=== PATIENT | male | born 1960 | race Two or more races ===

== ENCOUNTER 2023-01-11 09:42 | Inpatient (IN) | payer MEDICAID ==
[~2023-01-11] VITALS: Ht 157.5 cm; Wt 79.3 kg
[2023-01-11] VITALS (28 sets, daily range): BP systolic 120–169; BP diastolic 67–91; PULSE 55–76; RESP 12–23; TEMP 97.7–98.1; O2SAT 93–99
[2023-01-11] MEDS ORDERED: HEPARIN SODIUM (PORCINE) 5000 UNITS/ML 1ML VIAL ONE (09:55)
[2023-01-11] MEDS ORDERED: NITROGLYCERIN 0.4 MG SL TAB SL ONE ×2 (09:56→10:00)
[2023-01-11] MEDS ORDERED: METOPROLOL TARTRATE 1MG/1ML-5ML VIAL IV ONE ×2 (09:56→10:00)
[2023-01-11] MEDS ORDERED: ONDANSETRON HCL 4 MG/2 ML VIAL ONE (09:57)
[2023-01-11] MEDS ORDERED: MORPHINE SULFATE 4 MG/ML SYR/VIAL ONE (09:57)
[2023-01-11] MEDS ORDERED: ONDANSETRON HCL 4 MG/2 ML VIAL IV ONE (10:00)
[2023-01-11] MEDS ORDERED: MORPHINE SULFATE INJ 2 MG/ml SYRG IV PRN ×2 (10:00→10:30)
[2023-01-11] MEDS ORDERED: HEPARIN SODIUM (PORCINE) 5000 UNITS/ML 1ML VIAL IV ONE (10:00)
[2023-01-11] MEDS ORDERED: SODIUM CHLORIDE 0.9% 1,000 ML IV ONE (10:15)
[2023-01-11] MEDS ORDERED: ASPirin 81 mg TAB PO ONE (10:15)
[2023-01-11] MEDS ORDERED: LIDOCAINE 2%HCL (LOCAL ANESTH.) INJ 20ML MDV ONE (10:25)
[2023-01-11 10:26] LABS: Basophils # (auto) 0.1 10 ^3/uL (0-0.2); Basophils % (auto) 0.6 % (0.0-2.0); Eosinophils # (auto) 0.1 10 ^3/uL (0-0.8); Eosinophils % (auto) 1.7 % (0.0-7.0); Hemoglobin 15.5 g/dL (13.5-17.5); Lymphocytes # (auto) 1.9 10 ^3/uL (0.4-5.4); Lymphocytes % (auto) 21.9 % (10.0-50.0); Mean Corpuscular Hemoglobin 30.5 pg (28.0-32.0); Mean Corpuscular Hgb Conc. 33.7 g/dL (32.0-36.0); Mean Corpuscular Volume 90.5 fL (80.0-100.0); Monocytes # (auto) 0.7 10 ^3/uL (0-1.3); Neutrophils % (auto) 67.8 % (37.0-80.0); Nucleated Red Blood Cells % 0.1 %; Red Blood Cells 5.09 10^6/uL (4.5-5.90); Red Cell Distribution Width 12.8 % (11.8-14.3); White Blood Cell 8.8 10^3/uL (4.4-10.8)
[2023-01-11] MEDS ORDERED: IODIXANOL 320MG/ML 100ML BTL IV ONE (10:26)
[2023-01-11] MEDS ORDERED: HEPARIN IN NS 1000Units/500mL 1,500 ML ONE (10:26)
[2023-01-11] MEDS ORDERED: NITROGLYCERIN 0.4 MG SL TAB SL PRN (10:30)
[2023-01-11] MEDS ORDERED: ONDANSETRON HCL 4 MG/2 ML VIAL IV PRN (10:30)
[2023-01-11] MEDS ORDERED: DEXTROSE (50%) 50ML SYRG IV PRN (10:30)
[2023-01-11] MEDS ORDERED: ACETAMINOPHEN 325 MG TAB PO PRN (10:30)
[2023-01-11] MEDS ORDERED: SODIUM CHLORIDE 0.9% 1,000 ML IV SCH (10:30)
[2023-01-11 10:42] LABS: Alanine Aminotransferase 24 U/L (7-40); Alkaline Phosphatase 88 U/L (46-116); Anion Gap 8 (5-15); Aspartate Aminotransferase 23 U/L (13-40); BUN/Creatinine Ratio 12.4 (10.0-20.0); Blood Urea Nitrogen 12 mg/dL (9-23); Calcium 9.2 mg/dL (8.5-10.1); Carbon Dioxide 27 mmol/L (20-30); Chloride 105 mmol/L (98-107); Glucose 299 mg/dL (74-106); Potassium 4.3 mmol/L (3.5-5.1); Sodium 140 mmol/L (136-145)
[2023-01-11 10:43] LABS: Albumin 4.3 g/dL (3.2-4.8); Total Protein 7.8 g/dL (5.7-8.2)
[2023-01-11 10:44] LABS: INR 1.13 (0.9-1.15); Partial Thromboplastin Time 30.1 SEC (24.5-34.5); Prothrombin Time 11.8 sec (9.3-11.8)
[2023-01-11] MEDS ORDERED: VERAPAMIL 2.5MG/ML INJ 2ML VIAL IV ONE (10:44)
[2023-01-11] MEDS ORDERED: fentaNYL CITRATE 100 MCG/2 ML VL ONE (10:44)
[2023-01-11] MEDS ORDERED: ANGIOMAX 250 MG VIAL IV ONE (10:44)
[2023-01-11] MEDS ORDERED: SODIUM CHL 0.9% 0 ML ONE (10:45)
[2023-01-11] MEDS ORDERED: ATROPINE SULF 1 MG/10ml SYR ONE (10:45)
[2023-01-11] MEDS ORDERED: MIDAZOLAM HCL 2MG/2ML 2ml VIAL (1mg/ml) ONE (10:45)
[2023-01-11 11:15] LABS: Triglycerides 122 mg/dL (< 150)
[2023-01-11 11:16] LABS: LDL Cholesterol 167 mg/dL (< 100)
[2023-01-11 11:17] LABS: Cholesterol 231 mg/dL (< 200); HDL Cholesterol 43 mg/dL (40-59)
[2023-01-11] MEDS ORDERED: HEPARIN DRIP/D5W 100UNITS/ML 250 ML IV ONE (11:53)
[2023-01-11] MEDS ORDERED: CHOL20002 PO (12:00)
[2023-01-11] MEDS ORDERED: HEPARIN DRIP/D5W 100UNITS/ML 250 ML IV SCH ×2 (12:00→15:28)
[2023-01-11] MEDS: ACCU-CHEK COMFORT CURVE STRIP VI SCH ×3 (13:16→21:52)
[2023-01-11] MEDS: InsuLIN REG 1unit/0.01ml Soln (100units/ml) SC SCH ×3 (13:17→21:58)
[2023-01-11 14:13] LABS: Basophils # (auto) 0 10 ^3/uL (0-0.2); Basophils % (auto) 0.5 % (0.0-2.0); Eosinophils # (auto) 0 10 ^3/uL (0-0.8); Eosinophils % (auto) 0.5 % (0.0-7.0); Hematocrit 45.1 % (41.0-53.0); Hemoglobin 15.2 g/dL (13.5-17.5); Lymphocytes # (auto) 1.1 10 ^3/uL (0.4-5.4); Lymphocytes % (auto) 14.4 % (10.0-50.0); Mean Corpuscular Hemoglobin 30.6 pg (28.0-32.0); Mean Corpuscular Hgb Conc. 33.8 g/dL (32.0-36.0); Mean Corpuscular Volume 90.6 fL (80.0-100.0); Monocytes # (auto) 0.4 10 ^3/uL (0-1.3); Monocytes % (auto) 5.5 % (0.0-12.0); Neutrophils # (auto) 6.3 10 ^3/uL (1.6-8.6); Neutrophils % (auto) 79.1 % (37.0-80.0); Red Blood Cells 4.97 10^6/uL (4.5-5.90); Red Cell Distribution Width 12.5 % (11.8-14.3)
[2023-01-11] MEDS ORDERED: METOPROLOL TARTRATE 25 MG TAB PO ONE (14:15)
[2023-01-11 14:28] LABS: INR 1.14 (0.9-1.15); Partial Thromboplastin Time 45.9 SEC (24.5-34.5); Prothrombin Time 11.9 sec (9.3-11.8)
[2023-01-11] MEDS: METOPROLOL SUCCINATE XL 50 MG TAB PO SCH (15:15)
[2023-01-11] MEDS ORDERED: LISINOPRIL 10 MG TAB PO SCH (15:15)
[2023-01-11 16:24] LABS: COVID19 ANTIGEN SOFIA FIA NEGATIVE (NEGATIVE)
[2023-01-11] MEDS ORDERED: LISI10TA34 PO (18:14)
[2023-01-11] MEDS ORDERED: hydrALAZINE HCL 20 MG/ML VL IV PRN (18:15)
[2023-01-11 18:54] LABS: INR 1.16 (0.9-1.15); Prothrombin Time 12.1 sec (9.3-11.8)
[2023-01-11] MEDS ORDERED: LISINOPRIL 10 MG TAB PO ONE (20:00)
[2023-01-11] MEDS ORDERED: ATORVASTATIN 20 MG TAB PO SCH ×2 (22:00)
[2023-01-12] VITALS (20 sets, daily range): BP systolic 119–165; BP diastolic 65–86; PULSE 54–77; RESP 11–25; TEMP 97.9–98.7; O2SAT 91–99
[2023-01-12 01:54] LABS: INR 1.14 (0.9-1.15); Partial Thromboplastin Time 68.2 SEC (24.5-34.5); Prothrombin Time 11.9 sec (9.3-11.8)
[2023-01-12] MEDS: ACCU-CHEK COMFORT CURVE STRIP VI SCH ×2 (06:33→11:39)
[2023-01-12] MEDS: InsuLIN REG 1unit/0.01ml Soln (100units/ml) SC SCH ×2 (06:36→11:42)
[2023-01-12 07:44] LABS: INR 1.17 (0.9-1.15); Prothrombin Time 12.2 sec (9.3-11.8)
[2023-01-12 08:28] LABS: Chloride 103 mmol/L (98-107); Potassium 4.1 mmol/L (3.5-5.1); Sodium 139 mmol/L (136-145)
[2023-01-12 08:29] LABS: Anion Gap 7 (5-15); Calcium 8.7 mg/dL (8.5-10.1); Carbon Dioxide 29 mmol/L (20-30)
[2023-01-12 08:34] LABS: Blood Urea Nitrogen 16 mg/dL (9-23); Glucose 212 mg/dL (74-106)
[2023-01-12 09:38] LABS: Basophils # (auto) 0 10 ^3/uL (0-0.2); Basophils % (auto) 0.4 % (0.0-2.0); Eosinophils # (auto) 0.1 10 ^3/uL (0-0.8); Eosinophils % (auto) 1.6 % (0.0-7.0); Hematocrit 41.6 % (41.0-53.0); Hemoglobin 14.2 g/dL (13.5-17.5); Lymphocytes # (auto) 1.9 10 ^3/uL (0.4-5.4); Lymphocytes % (auto) 22.5 % (10.0-50.0); Mean Corpuscular Hemoglobin 30.4 pg (28.0-32.0); Mean Corpuscular Volume 89.5 fL (80.0-100.0); Monocytes # (auto) 0.8 10 ^3/uL (0-1.3); Monocytes % (auto) 9.4 % (0.0-12.0); Neutrophils # (auto) 5.6 10 ^3/uL (1.6-8.6); Neutrophils % (auto) 66.1 % (37.0-80.0); Red Blood Cells 4.65 10^6/uL (4.5-5.90); Red Cell Distribution Width 12.7 % (11.8-14.3); White Blood Cell 8.5 10^3/uL (4.4-10.8)
[2023-01-12] MEDS ORDERED: LISINOPRIL 20 MG TAB PO SCH (10:00)
[2023-01-12] MEDS ORDERED: ASPirin 81 mg TAB PO SCH (10:00)
[2023-01-12] MEDS ORDERED: CHOLECALCIFEROL (VITD3) 2,000 UNIT CAP/TAB PO SCH (10:00)
[2023-01-12] MEDS ORDERED: PANTOPRAZOLE 40 MG/10 ML VIAL INJ IV SCH (10:00)
[2023-01-12] MEDS ORDERED: METOPROLOL TARTRATE 25 MG TAB PO SCH (10:00)
[2023-01-12] MEDS: METOPROLOL SUCCINATE XL 50 MG TAB PO SCH (10:10)
== END 2023-01-12 11:20 | disposition short-term general hospital (02) | DRG 190 ==
LOC: ER 09:42 → EDBD 09:42 → TELE 10:23 → ICU WEST 12:40
PROVIDERS: ADMIT Nurse Practitioner Family; ATTEND Internal Medicine
PROC: 4A023N7 Measurement of Cardiac Sampling and Pressure, Left Heart, Percutaneous Approach (ICD-10-PCS; principal; 2023-01-11)
PROC: B211YZZ Fluoroscopy of Multiple Coronary Arteries using Other Contrast (ICD-10-PCS; 2023-01-11)
PROC: B215YZZ Fluoroscopy of Left Heart using Other Contrast (ICD-10-PCS; 2023-01-11)
DX: I21.19 ST elevation (STEMI) myocardial infarction involving other coronary artery of inferior wall (principal); I50.31 Acute diastolic (congestive) heart failure; I11.0 Hypertensive heart disease with heart failure; E66.9 Obesity, unspecified; E78.5 Hyperlipidemia, unspecified; Z79.82 Long term (current) use of aspirin; Z79.899 Other long term (current) drug therapy; Z68.32 Body mass index [BMI] 32.0-32.9, adult; Z20.822 Contact with and (suspected) exposure to COVID-19
CPT/HCPCS: 36415; 71045; 80048; 80053; 80061; 82962; 83036; 83735; 83880; 84443; 84484; 85025; 85379; 85610; 85730; 86850; 86900; 86901; 87081; 87426; 93005; 93306; 93458; 99152; 99291; C9113; G0378; J2250; J2405; Q9967

== ENCOUNTER 2024-02-01 18:06 | Inpatient (IN) | payer MEDICAID ==
[~2024-02-01] VITALS: Ht 172.7 cm; Wt 77.9 kg
[~2024-02-01 18:06] MED LIST: CHOL20002 PO; LISI10TA34 PO
--- NOTE | 2024-02-01 18:28 | ED.PDOC ---
General HPI Comments HPI: Poor Historian. 63-year-old male presents to the emergency department for right flank pain intermittent nonradiating with associated nausea. Denies any other acute symptoms. No alleviating or precipitating factors. Past Medcial History: Hypertension, hyperlipidemia Past Surgical History: CABG REVIEW OF SYSTEMS: CONSTITUTIONAL: Denies acute: fever, diaphoresis, chills, generalized weakness. HEAD: Denies acute: headache, photophobia Eyes: Denies acute: Double vision, vision loss, eye pain, eye discharge. EARS: Denies acute: tinnitus, hearing loss, ear discharge, ear pain, THROAT: Denies acute: sore throat, swelling, difficulty swallowing , pain with swallowing, change in voice. NECK: Denies acute: neck pain, neck swelling, stiff neck. HEART: Denies acute : chest pain, palpitations, LUNGS: Denies acute: SOB, wheezing, cough, hemoptysis ABDOMEN: Denies acute: abdominal pain, Nausea, Vomiting, diarrhea, melena , hematemesis, hematochezia SKIN: Denies acute: rash, redness, lesions, itchiness. EXTREMITIES: Denies acute: calf pain, numbness, tingling, weakness, denies pain in extremity. Denies acute: Low back pain. Neuro: Denies acute: focal neurological deficit, motor or sensory focal neurological deficit, tremors, seizure like activity, confusion, dizziness, change in mental status, loss of bowel or bladder function, cauda equina like symptoms. : Denies acute: dysuria, hematuria, increase in urinary frequency. PSYCH: Denies acute: hallucination, suicidal ideation, homicidal ideation. PHYSICAL EXAM: General: no acute distress, awake and alert. Head: normocephalic, atraumatic. Neck: supple, trachea is midline, no swelling. Throat: Normal phonation. Eyes:, no erythema, no purulent discharge, no proptosis, no icterus. Heart: regular rate, regular rhythm, no significant murmur appreciated. Lungs: no apparent respiratory distress, Able to speak in full sentences. No wheezing, no rhonchi, no crackles. No stridors Clear to auscultation bilaterally. Abdomen: non tender to palpation, non distended, soft, no guarding, no rebound, + bowel sounds. Neuro: Awake, Alert, oriented to name, self, situation, follows commands GCS=15. Speech is normal. Skin: no petechia, no purpura, no cyanosis, non-pale, not jaundice. Lower extremities: --no - Pitting edema no deformity, no focal swelling, no calf TTP. Makes eye contact. moves all four extremities. Face: no apparent facial droop. Right CVA tenderness to percussion Ambulating in the ED independently. Chief Complaint: Flank Pain Time Seen by MD: 18:13 Primary Care Provider: Unknown Reviewed notes: Nurses Notes, Allergies Allergies: Coded Allergies: NO KNOWN ALLERGIES (Unverified , 01/11/23) Home Meds Active Scripts Docusate Sodium (Colace) 100 Mg Cap, 1 CAP PO BID for 7 Days, #30 CAP Prov:TATYANA WILLIAM [employer]IST[employer]ER 02/03/24 Reported Medications Aspirin (Aspirin Low Dose) 81 Mg Tab, 1 TAB PO DAILY 02/02/24 Insulin Glargine (Lantus Solostar) 100 Unit/Ml Inj, SC 02/02/24 Atorvastatin Calcium (ATORVASTATIN CALCIUM) 40 Mg Tab, 1 TAB PO DAILY 02/02/24 Metoprolol Tartrate (Lopressor) 25 Mg Tb, 1 TAB PO BID 02/02/24 Gabapentin (Gabapentin) 300 Mg Cap, 1 CAP PO DAILY 02/02/24 Semaglutide (Rybelsus) 7 Mg Tab, 1 TAB PO DAILY 02/02/24 Metformin Hydrochloride (Metformin Hcl) 1,000 Mg Tab, 1 TAB PO BID 02/02/24 Lisinopril (Lisinopril) 10 Mg Tab, 10 MG PO DAILY for 30 Days, MG 01/11/23 Information Source: Patient Past Medical History PAST MEDICAL HISTORY: DM, High Lipids, HTN Surgical History: Denies all surgeries Family History Family History: Unknown Social History Smoker: Non-Smoker Alcohol: Denies ETOH Use Drugs: Denies Drug Use Lives In: Home Was a procedure done? Was a procedure done?: No Differential Diagnosis Kidney stone (Female): N/A Kidney stone (Male): Other (Flank Pain;DDX include Nephrolethiasis, obstructive uropathy, kidney cancer, renal infarct, intraabdominal neoplasm, lower lobe pneumonia, retroperitoneal hemorrhage, pancreatitis, aneurysm, dissection, musculoskeletal, rib contusion/trauma, hematoma, PYLONEPHRITIS, muscle strain, spinal disease. IN A FEMALE) X-Ray, Labs, Meds, VS Vital Signs Date Time Temp Pulse Resp B/P (MAP) Pulse Ox O2 Delivery O2 Flow Rate FiO2 02/01/24 22:12 156/87 02/01/24 21:36 98.5 86 12 156/87 (110) 96 98.5 02/01/24 21:36 86 12 96 Room Air 02/01/24 18:18 97.9 90 17 166/91 (116) 97 Lab Test 02/01/24 18:44 02/01/24 18:29 02/01/24 18:21 Range/Units Urine Color Yellow Yellow Urine Clarity Clear Clear Urine pH 6.0 5.0-9.0 Urine Specific [place] 1.019 1.001-1.035 Urine Protein Negative Negative Urine Ketones Negative Negative Urine Blood Negative Negative /uL Urine Nitrite Negative Negative Urine Bilirubin Negative Negative Urine Urobilinogen Normal Negative mg/dL Urine Leukocyte Esterase Negative Negative /uL Urine RBC 2 0 - 3 /hpf Urine WBC 1 0 - 3 /hpf Urine Squamous Epithelial Cells Few <5 /hpf Urine Bacteria None seen None Seen /hpf Urine Mucus Few None Seen Urine Glucose Normal Normal mg/dL White Blood Count 5.5 4.4-10.8 10^3/uL Red Blood Count 4.66 4.5-5.90 10^6/uL Hemoglobin 14.7 13.5-17.5 g/dL Hematocrit 43.5 41.0-53.0 % Mean Corpuscular Volume 93.3 80.0-100.0 fL Mean Corpuscular Hemoglobin 31.5 28.0-32.0 pg Mean Corpuscular Hemoglobin Concent 33.8 32.0-36.0 g/dL Red Cell Distribution Width 13.1 11.8-14.3 % Platelet Count 291 140-450 10^3/uL Mean Platelet Volume 9.0 6.9-10.8 fL Neutrophils (%) (Auto) 63.9 37.0-80.0 % Lymphocytes (%) (Auto) 19.4 10.0-50.0 % Monocytes (%) (Auto) 15.0 H 0.0-12.0 % Eosinophils (%) (Auto) 0.9 0.0-7.0 % Basophils (%) (Auto) 0.8 0.0-2.0 % Neutrophils # (Auto) 3.5 1.6-8.6 10 ^3/uL Lymphocytes # (Auto) 1.1 0.4-5.4 10 ^3/uL Monocytes # (Auto) 0.8 0-1.3 10 ^3/uL Eosinophils # (Auto) 0 0-0.8 10 ^3/uL Basophils # (Auto) 0 0-0.2 10 ^3/uL Nucleated Red Blood Cells 0.1 % Sodium Level 137 136-145 mmol/L Potassium Level 4.5 3.5-5.1 mmol/L Chloride Level 102 98-107 mmol/L Carbon Dioxide Level 32 H 20-31 mmol/L Anion Gap 3 L 5-15 Blood Urea Nitrogen 9 9-23 mg/dL Creatinine 0.94 0.700-1.30 mg/dL Glomerular Filtration Rate Calc 92 >90 mL/min BUN/Creatinine Ratio 9.6 L 10.0-20.0 Serum Glucose 170 H 74-106 mg/dL Calcium Level 9.8 8.7-10.4 mg/dL Total Bilirubin 0.5 0.2-1.0 mg/dL Aspartate Amino Transferase (AST) 15 13-40 U/L Alanine Aminotransferase (ALT) 16 7-40 U/L Alkaline Phosphatase 89 46-116 U/L Troponin I High Sensitivity < 3 L </=54 ng/L Total Protein 7.4 5.7-8.2 g/dL Albumin 4.4 3.2-4.8 g/dL Lipase 44 12-53 U/L Lactic Acid Level 1.4 0.4-2.0 mmol/L [place] [id number] Ph: [phone] DIAGNOSTIC IMAGING Diagnostic Imaging Report : [id number] Signed PATIENT: ARNIE ESTRELLA ACCT: [id number] UNIT: [id number] : 1960 LOC: ER ROOM / BED: / AGE / SEX: 63 / M ADM STATUS: REG ER SERVICE 16 ORDERING PHYSICIAN: CHRISTOPHER IVERSON DO PROCEDURE(s): ABPL - CT AB PEL WO CON-NO ORAL OR IV REASON: R FLANK PAIN ORDER NUMBER(s): [id number], ACCESSION NUMBER(s): [id number] Exam: CT CT AB PEL WO CON-NO ORAL OR IV History: R FLANK PAIN Comparison Study: None available at time of dictation. TECHNIQUE: Multidetector CT of the abdomen was performed from lung bases to pubic symphysis. Imaging was performed without IV contrast. Axial, coronal and sagittal multiplanar reformats were obtained from the axial data set by the technologist. Radiation Dose Information: CT Dose: CTDI volume is 15.78 mGy. Dose-length product is 905.59 mGy*cm FINDINGS: Evaluation of solid organs is limited due to lack of intravenous contrast use. Findings: Lung Bases: Patchy bilateral ground-glass infiltrates in the posterior costophrenic angles. There are no prior studies for comparison. Normal heart size. Sternal wire sutures are in place. No pleural or pericardial effusion. Liver: The liver is normal in size. No focal lesions. Gallbladder and Biliary Tree: Unremarkable Spleen: Unremarkable Pancreas: The pancreas is grossly normal in appearance. Adrenal Glands: Unremarkable Kidneys: Mild right hydronephrosis with no calculi visible.. Bladder: Grossly unremarkable for degree of distention. Bowel: The stomach is grossly normal in appearance. Small bowel and colon are normal in caliber and distribution. No CT findings to suggest bowel obstruction however there is stool throughout colon. The appendix is not visualized; however, no secondary findings of acute appendicitis identified. Ascites: Absent Lymphadenopathy: No mesenteric, retroperitoneal or periportal lymphadenopathy. Abdominal Wall and Mesentery: Unremarkable. Vasculature: The visualized abdominal aorta is normal in size and caliber. Evaluation of abdominal and pelvic vessels is limited due to lack of intravenous contrast. Pelvic Organs: Unremarkable Musculoskeletal: No aggressive focal bony lesions, acute fractures or dislocati on. Soft tissues: Unremarkable IMPRESSION: 1. Mild pyelocaliectasis with no calcification visible. 2. No bladder calculi visible. 3. No findings of bowel obstruction. 4. Large stool burden throughout the colon. Radiation optimization: All CT scans at this facility use at least one of these dose optimization techniques: automated exposure control mA and/or kV adjust ment per patient size (includes targeted exams where dose is matched to clinical indication) or iterative reconstruction. ATED BY: CHANELL BERGERON Jr., DO DICTATED DATE/TIME: 02/01/241925 SIGNED BY: CHANELL BERGERON Jr., SIGNED DATE/TIME: 02/01/241925 CC: Time of 1ST Reevaluation: 22:00 Reevaluation 1ST: Improved Patient Education/Counseling: Diagnosis, Treatment Family Education/Counseling: No Family Present Comments Patient presented with the above HPI.------workup was initiated. patient was found with the above mentioned diagnosis. Patient was given: Rocephin, fentanyl Patient ED course and VS have been stabilized. Patient has been reassessed in the ED and remained in a stable condition. Pertinent incidental findings were discussed with the patient and/or family. Patient/family voices understanding and is agreeable with plan. Patient has been observed in the ED adequate length of time to insure improvemen t/stability. patient was admitted to the medicine team for further evaluation and treatment of their presentation. All the reports of any imaging studies that were ordered by myself were reviewed by myself. Departure 1 Departure Time of Disposition: 22:07 Impression: Primary Impression: Flank pain Additional Impression: Pyelonephritis Disposition: ADMITTED INPATIENT Admit to: Tele Condition: Stable e-Prescriptions Docusate Sodium (Colace) 100 Mg Cap 1 CAP PO BID for 7 Days, #30 CAP Prov: TATYANA WILLIAM NP 02/03/24 Discharged With: Self Critical Care Note Critical Care Time?: No CHRISTOPHER IVERSON DO Feb 01, 2024 18:28
[2024-02-01 18:45] LABS: Urine Bacteria None Seen /hpf (None Seen)
[2024-02-01 18:52] LABS: Basophils # (auto) 0 10 ^3/uL (0-0.2); Basophils % (auto) 0.8 % (0.0-2.0); Eosinophils # (auto) 0 10 ^3/uL (0-0.8); Eosinophils % (auto) 0.9 % (0.0-7.0); Hematocrit 43.5 % (41.0-53.0); Hemoglobin 14.7 g/dL (13.5-17.5); Lymphocytes # (auto) 1.1 10 ^3/uL (0.4-5.4); Lymphocytes % (auto) 19.4 % (10.0-50.0); Mean Corpuscular Hemoglobin 31.5 pg (28.0-32.0); Mean Corpuscular Hgb Conc. 33.8 g/dL (32.0-36.0); Mean Corpuscular Volume 93.3 fL (80.0-100.0); Monocytes # (auto) 0.8 10 ^3/uL (0-1.3); Neutrophils # (auto) 3.5 10 ^3/uL (1.6-8.6); Neutrophils % (auto) 63.9 % (37.0-80.0); Nucleated Red Blood Cells % 0.1 %; Platelet Count (auto) 291 10^3/uL (140-450); Red Blood Cells 4.66 10^6/uL (4.5-5.90); Red Cell Distribution Width 13.1 % (11.8-14.3); White Blood Cell 5.5 10^3/uL (4.4-10.8)
[2024-02-01 19:06] LABS: Alanine Aminotransferase 16 U/L (7-40); Albumin 4.4 g/dL (3.2-4.8); Alkaline Phosphatase 89 U/L (46-116); Anion Gap 3 (5-15); Aspartate Aminotransferase 15 U/L (13-40); BUN/Creatinine Ratio 9.6 (10.0-20.0); Bilirubin, Total 0.5 mg/dL (0.2-1.0); Blood Urea Nitrogen 9 mg/dL (9-23); Calcium 9.8 mg/dL (8.7-10.4); Carbon Dioxide 32 mmol/L (20-31); Chloride 102 mmol/L (98-107); Glucose 170 mg/dL (74-106); Lipase 44 U/L (12-53); Potassium 4.5 mmol/L (3.5-5.1); Sodium 137 mmol/L (136-145); Total Protein 7.4 g/dL (5.7-8.2)
--- NOTE | 2024-02-01 19:29 | DVH ---
Exam: CT CT AB PEL WO CON-NO ORAL OR IV History: R FLANK PAIN Comparison Study: None available at time of dictation. TECHNIQUE: Multidetector CT of the abdomen was performed from lung bases to pubic symphysis. Imaging was performed without IV contrast. Axial, coronal and sagittal multiplanar reformats were obtained fr om the axial data set by the technologist. Radiation Dose Information: CT Dose: CTDI volume is 15.78 mGy. Dose-length product is 905.59 mGy*cm FINDINGS: Evaluation of solid organs is limited due to lack of intravenous contrast use. Findings: Lung Bases: Patchy bilateral ground-glass infiltrates in the posterior costophrenic angles. There are no prior studies for comparison. Normal heart size. Sternal wire sutures are in place. No pleural o r pericardial effusion. Liver: The liver is normal in size. No focal lesions. Gallbladder and Biliary Tree: Unremarkable Spleen: Unremarkable Pancreas: The pancreas is grossly normal in appearance. Adrenal Glands: Unremarkable Kidneys: Mild right hydronephrosis with no calculi visible.. Bladder: Grossly unremarkable for degree of distention. Bowel: The stomach is grossly normal in appearance. Small bowel and colon are normal in caliber and d istribution. No CT findings to suggest bowel obstruction however there is stool throughout colon. Th e appendix is not visualized; however, no secondary findings of acute appendicitis identified. Ascites: Absent Lymphadenopathy: No mesenteric, retroperitoneal or periportal lymphadenopathy. Abdominal Wall and Mesentery: Unremarkable. Vasculature: The visualized abdominal aorta is normal in size and caliber. Evaluation of abdominal a nd pelvic vessels is limited due to lack of intravenous contrast. Pelvic Organs: Unremarkable Musculoskeletal: No aggressive focal bony lesions, acute fractures or dislocation. Soft tissues: Unremarkable IMPRESSION: 1. Mild pyelocaliectasis with no calcification visible. 2. No bladder calculi visible. 3. No findings of bowel obstruction. 4. Large stool burden throughout the colon. Radiation optimization: All CT scans at this facility use at least one of these dose optimization reginald hniques: automated exposure control mA and/or kV adjustment per patient size (includes targeted exam s where dose is matched to clinical indication) or iterative reconstruction.
[2024-02-01 20:06] LABS: Urine Blood Negative /uL (Negative); Urine Clarity Clear (Clear); Urine Color Yellow (Yellow); Urine Mucus FEW (None Seen); Urine Protein, UAD Negative (Negative); Urine Specific Gravity 1.019 (1.001-1.035); Urine Urobilinogen Normal (Negative); Urine WBC 1 /hpf (0 - 3)
[2024-02-01] MEDS: cefTRIAXone 1GM/50ML D5W 50 ML IV ONE (21:33)
[2024-02-01] MEDS: fentaNYL CITRATE 100 MCG/2 ML VL IV ONE (22:12)
--- NOTE | 2024-02-01 22:26 | DVHHP2 ---
History of Present Illness Reason for Visit: Flank pain History of Present Illness 63 year male presents for evaluation and flank pain. Patient endorses a one day history right-sided sharp flank pain that is nonradiating associated nausea. Reports occasional chills. Denies dysuria or hematuria. No other acute complaints reported. Past Medical History Hypertension, [place] and dyslipidemia Past Surgical History CABG Family History Noncontributory Smoke: No ALCOHOL: none Drugs: None Review of Systems Review of Systems Review of systems are currently negative otherwise addressed HPI. Allergies: Coded Allergies: NO KNOWN ALLERGIES (Unverified , 01/11/23) Exam Vital Signs Vital Signs Date Time Temp Pulse Resp B/P (MAP) Pulse Ox O2 Delivery O2 Flow Rate FiO2 02/01/24 22:12 156/87 02/01/24 21:36 98.5 86 12 96 98.5 02/01/24 21:36 Room Air Exam Gen: 63-year-old male in mild distress Skin: Warm, dry, normal color and texture, no rash. HEENT: Normocephalic atraumatic, mucous membranes moist and pink. Neck: Cervical and supraclavicular nodes normal without enlargement, trachea is midline, thyroid gland is normal without masses. Pulmonary: Clear to auscultation and percussion bilaterally. Cardiac: Regular rate and rhythm. No murmur Abdomen: Soft, nontender, nondistended, bowel sounds present all 4 quadrants, no guarding, no rigidity, no organomegaly. Extremities: No cyanosis, clubbing, no edema Neuro: Cranial nerves II through XII grossly intact, normal affect and speech, no focal motor deficits. Labs/Xrays ORDERING PHYSICIAN: CHRISTOPHER IVERSON DO PROCEDURE(s): ABPL - CT AB PEL WO CON-NO ORAL OR IV REASON: R FLANK PAIN ORDER NUMBER(s): [id number], ACCESSION NUMBER(s): [id number] Exam: CT CT AB PEL WO CON-NO ORAL OR IV History: R FLANK PAIN Comparison Study: None available at time of dictation. TECHNIQUE: Multidetector CT of the abdomen was performed from lung bases to pubic symphysis. Imaging was performed without IV contrast. Axial, coronal and sagittal multiplanar reformats were obtained from the axial data set by the technologist. Radiation Dose Information: CT Dose: CTDI volume is 15.78 mGy. Dose-length product is 905.59 mGy*cm FINDINGS: Evaluation of solid organs is limited due to lack of intravenous contrast use. Findings: Lung Bases: Patchy bilateral ground-glass infiltrates in the posterior costophrenic angles. There are no prior studies for comparison. Normal heart size. Sternal wire sutures are in place. No pleural or pericardial effusion. Liver: The liver is normal in size. No focal lesions. Gallbladder and Biliary Tree: Unremarkable Spleen: Unremarkable Pancreas: The pancreas is grossly normal in appearance. Adrenal Glands: Unremarkable Kidneys: Mild right hydronephrosis with no calculi visible.. Bladder: Grossly unremarkable for degree of distention. Bowel: The stomach is grossly normal in appearance. Small bowel and colon are normal in caliber and distribution. No CT findings to suggest bowel obstruction however there is stool throughout colon. The appendix is not visualized; however, no secondary findings of acute appendicitis identified. Ascites: Absent Lymphadenopathy: No mesenteric, retroperitoneal or periportal lymphadenopathy. Abdominal Wall and Mesentery: Unremarkable. Vasculature: The visualized abdominal aorta is normal in size and caliber. Evaluation of abdominal and pelvic vessels is limited due to lack of intravenous contrast. Pelvic Organs: Unremarkable Musculoskeletal: No aggressive focal bony lesions, acute fractures or dislocation. Soft tissues: Unremarkable IMPRESSION: 1. Mild pyelocaliectasis with no calcification visible. 2. No bladder calculi visible. 3. No findings of bowel obstruction. 4. Large stool burden throughout the colon. Radiation optimization: All CT scans at this facility use at least one of these dose optimization techniques: automated exposure control mA and/or kV adjustment per patient size (includes targeted exams where dose is matched to clinical indication) or iterative reconstruction. Labs Test 02/01/24 18:44 02/01/24 18:29 02/01/24 18:21 Range/Units Urine Color Yellow Yellow Urine Clarity Clear Clear Urine pH 6.0 5.0-9.0 Urine Specific [place] 1.019 1.001-1.035 Urine Protein Negative Negative Urine Ketones Negative Negative Urine Blood Negative Negative /uL Urine Nitrite Negative Negative Urine Bilirubin Negative Negative Urine Urobilinogen Normal Negative mg/dL Urine Leukocyte Esterase Negative Negative /uL Urine RBC 2 0 - 3 /hpf Urine WBC 1 0 - 3 /hpf Urine Squamous Epithelial Cells Few <5 /hpf Urine Bacteria None seen None Seen /hpf Urine Mucus Few None Seen Urine Glucose Normal Normal mg/dL White Blood Count 5.5 4.4-10.8 10^3/uL Red Blood Count 4.66 4.5-5.90 10^6/uL Hemoglobin 14.7 13.5-17.5 g/dL Hematocrit 43.5 41.0-53.0 % Mean Corpuscular Volume 93.3 80.0-100.0 fL Mean Corpuscular Hemoglobin 31.5 28.0-32.0 pg Mean Corpuscular Hemoglobin Concent 33.8 32.0-36.0 g/dL Red Cell Distribution Width 13.1 11.8-14.3 % Platelet Count 291 140-450 10^3/uL Mean Platelet Volume 9.0 6.9-10.8 fL Neutrophils (%) (Auto) 63.9 37.0-80.0 % Lymphocytes (%) (Auto) 19.4 10.0-50.0 % Monocytes (%) (Auto) 15.0 H 0.0-12.0 % Eosinophils (%) (Auto) 0.9 0.0-7.0 % Basophils (%) (Auto) 0.8 0.0-2.0 % Neutrophils # (Auto) 3.5 1.6-8.6 10 ^3/uL Lymphocytes # (Auto) 1.1 0.4-5.4 10 ^3/uL Monocytes # (Auto) 0.8 0-1.3 10 ^3/uL Eosinophils # (Auto) 0 0-0.8 10 ^3/uL Basophils # (Auto) 0 0-0.2 10 ^3/uL Nucleated Red Blood Cells 0.1 % Sodium Level 137 136-145 mmol/L Potassium Level 4.5 3.5-5.1 mmol/L Chloride Level 102 98-107 mmol/L Carbon Dioxide Level 32 H 20-31 mmol/L Anion Gap 3 L 5-15 Blood Urea Nitrogen 9 9-23 mg/dL Creatinine 0.94 0.700-1.30 mg/dL Glomerular Filtration Rate Calc 92 >90 mL/min BUN/Creatinine Ratio 9.6 L 10.0-20.0 Serum Glucose 170 H 74-106 mg/dL Calcium Level 9.8 8.7-10.4 mg/dL Total Bilirubin 0.5 0.2-1.0 mg/dL Aspartate Amino Transferase (AST) 15 13-40 U/L Alanine Aminotransferase (ALT) 16 7-40 U/L Alkaline Phosphatase 89 46-116 U/L Troponin I High Sensitivity < 3 L </=54 ng/L Total Protein 7.4 5.7-8.2 g/dL Albumin 4.4 3.2-4.8 g/dL Lipase 44 12-53 U/L Lactic Acid Level 1.4 0.4-2.0 mmol/L Assessment/Plan Assessment/Plan Assessment acute pyelonephritis Diabetes mellitus Hypertension Plan Admit the patient to [facility] to the hospitalist Lionel Pain management Resume medications Continue treatment per orders. Plan discussed with: Patient Date of Service: Feb 01, 2024 Billing Provider: NICOLE MEDINA Common Visit Codes: [id number] INP/OBS CARE (MOD) NICOLE MEDINA Feb 01, 2024 22:26
[2024-02-01] MEDS ORDERED: ACETAMINOPHEN 325 MG TAB PO PRN (22:30)
[2024-02-01] MEDS ORDERED: TEMAZEPAM 15 MG CAP PO PRN (22:30)
[2024-02-01] MEDS ORDERED: DEXTROSE (50%) 50ML SYRG IV PRN (22:30)
[2024-02-01] MEDS: ONDANSETRON HCL 4 MG/2 ML VIAL ONE (22:43)
[2024-02-01] MEDS: ONDANSETRON HCL 4 MG/2 ML VIAL IV PRN (22:57)
[2024-02-01 23:18] VITALS: PULSE 79; RESP 16; O2SAT 93
[2024-02-02] VITALS (7 sets, daily range): BP systolic 112–161; BP diastolic 61–87; PULSE 61–88; RESP 16–18; TEMP 97.8–98.1; O2SAT 94–99
[2024-02-02 03:04] LABS: Basophils # (auto) 0 10 ^3/uL (0-0.2); Basophils % (auto) 0.6 % (0.0-2.0); Eosinophils # (auto) 0 10 ^3/uL (0-0.8); Eosinophils % (auto) 0.5 % (0.0-7.0); Hematocrit 41.2 % (41.0-53.0); Lymphocytes % (auto) 13.8 % (10.0-50.0); Mean Corpuscular Hemoglobin 31.5 pg (28.0-32.0); Mean Corpuscular Volume 92.7 fL (80.0-100.0); Monocytes % (auto) 13.4 % (0.0-12.0); Neutrophils # (auto) 5.3 10 ^3/uL (1.6-8.6); Neutrophils % (auto) 71.7 % (37.0-80.0); Platelet Count (auto) 257 10^3/uL (140-450); Red Blood Cells 4.44 10^6/uL (4.5-5.90); Red Cell Distribution Width 13.1 % (11.8-14.3); White Blood Cell 7.3 10^3/uL (4.4-10.8)
[2024-02-02 03:10] LABS: Chloride 104 mmol/L (98-107); Sodium 137 mmol/L (136-145)
[2024-02-02 03:11] LABS: Anion Gap 3 (5-15); Carbon Dioxide 30 mmol/L (20-31)
[2024-02-02 03:12] LABS: Calcium 9.3 mg/dL (8.7-10.4)
[2024-02-02 03:16] LABS: BUN/Creatinine Ratio 9.8 (10.0-20.0); Blood Urea Nitrogen 8 mg/dL (9-23); Glucose 171 mg/dL (74-106)
[2024-02-02] MEDS: InsuLIN REG 1unit/0.01ml Soln (100units/ml) SC SCH (07:00)
[2024-02-02] MEDS: ACCU-CHEK COMFORT CURVE STRIP VI SCH (07:11)
[2024-02-02] MEDS: ASPirin 81 mg TAB PO SCH (09:01)
[2024-02-02] MEDS: GABAPENTIN 300 MG CAP PO SCH (09:01)
[2024-02-02] MEDS: LISINOPRIL 5 MG TAB PO SCH (09:02)
[2024-02-02] MEDS: METOPROLOL TARTRATE 25 MG TAB PO SCH (09:09)
[2024-02-02] MEDS: cefTRIAXone 1GM/50ML D5W 50 ML IV SCH (09:12)
[2024-02-02] MEDS ORDERED: METF-372 PO (10:31)
[2024-02-02] MEDS ORDERED: SEMA7TAB2 PO (10:32)
[2024-02-02] MEDS ORDERED: GABA-1250 PO (10:33)
[2024-02-02] MEDS ORDERED: MET25T PO (10:33)
[2024-02-02] MEDS ORDERED: ASPI-325 PO (10:35)
[2024-02-02] MEDS ORDERED: ATOR40TA52 PO (10:35)
[2024-02-02] MEDS ORDERED: INSUINJ37 SC (10:35)
--- NOTE | 2024-02-02 15:27 | DVHPN2 ---
Subjective Patient continues to report having right flank pain. Patient also reports having constipation. Reviewed: Care Plan, H&P, Labs, Medications Changes from previous H/P or p: No Changes General: Per HPI Objective Vitals Vital Signs Date Time Temp Pulse Resp B/P (MAP) Pulse Ox O2 Delivery O2 Flow Rate FiO2 02/02/24 12:37 98.0 88 18 135/73 (93) 94 98.0 02/02/24 08:00 Room Air* 0 21 Intake/Output Intake and Output 02/02/24 07:00 Intake Total 50 ml Balance 50 ml Intake IV Total 50 ml General Appearance: Alert, Oriented X3, Cooperative, No acute distress HEENT: Atraumatic, PERRLA Lungs: Clear to auscultation, Normal air movement Cardiovascular: Normal S1, Normal S2 Abdomen: Normal bowel sounds, Soft, No tenderness Rectal: Normal inspection Genitourinary: No Apparent Abnormalities Musculoskeletal: Normal sensory function, Normal motor function Neuro: Normal gait, Normal speech Psych/Mental Status: Mental status NL, Mood NL Medications Current Medications Medications Dose Ordered Sig/Khushboo Route Start Time Stop Time Status Last Admin Dose Admin Ceftriaxone Sodium 50 ml @ 100 mls/hr DAILY@09 IV 02/02/24 09:00 02/02/24 09:12 100 MLS/HR Gabapentin 300 mg DAILY PO 02/02/24 10:00 02/02/24 09:01 300 MG Metoprolol Tartrate 25 mg BID PO 02/02/24 10:00 02/02/24 09:09 25 MG Atorvastatin Calcium 40 mg HS PO 02/02/24 22:00 Lisinopril 10 mg DAILY PO 02/02/24 10:00 02/02/24 09:02 10 MG Aspirin 81 mg DAILY PO 02/02/24 10:00 02/02/24 09:01 81 MG Acetaminophen/ Hydrocodone Bitart 1 tab Q4HP PRN PO 02/01/24 22:30 Temazepam 15 mg QHSP PRN PO 02/01/24 22:30 Ondansetron HCl 4 mg Q4HP PRN IV 02/01/24 22:30 02/01/24 22:57 4 MG Acetaminophen 650 mg Q6HP PRN PO 02/01/24 22:30 Diagnostic Test (Pha) 1 strip ACHS 02/02/24 07:00 02/02/24 11:13 1 STRIP Insulin Human Regular ACHS SC 02/02/24 07:00 02/02/24 12:14 3 UNITS Dextrose 50 ml UD PRN IV 02/01/24 22:30 Laboratory Results Laboratory Tests 02/02/24 02:12 Chemistry Test 02/01/24 18:29 02/02/24 02:12 Albumin 4.4 g/dL (3.2-4.8) Calcium Level 9.8 mg/dL (8.7-10.4) 9.3 mg/dL (8.7-10.4) Total Protein 7.4 g/dL (5.7-8.2) Lipid panel Test 02/01/24 18: Lipase 44 U/L (12-53) LFT Test 02/01/24 18:29 Alanine Aminotransferase (ALT) 16 U/L (7-40) Alkaline Phosphatase 89 U/L (46-116) Aspartate Amino Transferase (AST) 15 U/L (13-40) Total Bilirubin 0.5 mg/dL (0.2-1.0) Urinalysis Test 02/01/24 18:44 Urine Color Yellow (Yellow) Urine Clarity Clear (Clear) Urine pH 6.0 (5.0-9.0) Urine Specific [place] 1.019 (1.001-1.035) Urine Protein Negative (Negative) Urine Ketones Negative (Negative) Urine Blood Negative /uL (Negative) Urine Nitrite Negative (Negative) Urine Bilirubin Negative (Negative) Urine Urobilinogen Normal mg/dL (Negative) Urine Leukocyte Esterase Negative /uL (Negative) Urine RBC 2 /hpf (0 - 3) Urine WBC 1 /hpf (0 - 3) Urine Squamous Epithelial Cells Few /hpf (<5) Urine Bacteria None seen /hpf (None Seen) Urine Mucus Few (None Seen) Urine Glucose Normal mg/dL (Normal) Labs and/or images reviewed: Labs reviewed by me, Image(s) reviewed by me Assessment/Plan Assessment/Plan Impression: -abdominal pain -constipation -mild right hydronephrosis -diabetes mellitus -primary hypertension Plan: -assessment reveals no CVA tenderness. No tenderness noted to light and deep palpation. -bowel regimen: Stool softeners, laxatives -continue regular insulin sliding scale -continue home antihypertensives -trial of Flomax -reassess for Discharge in a.m. Total time spent with patient discussing and formulating plan of care: 35 minutes. This medical document was created using an electronic medical record system with [employer] computerized dictation system. Although this document has been carefully reviewed, there may still be some phonetic and typographical errors. These areas are purely typographical due to imperfections of the software programs, and do not reflect any compromise in the patient's medical care. Plan discussed with: Patient, Other (RN) Date of Service: Feb 02, 2024 Billing Provider: TATYANA WILLIAM NP Common Visit Codes: [id number] INP/OBS CARE(HIGH) TATYANA WILLIAM NP Feb 02, 2024 15:27
[2024-02-02] MEDS ORDERED: SENNA 8.6 MG TAB PO PRN (15:30)
[2024-02-02] MEDS: POLYETHYLENE GLYCOL 17 GM PWDR PO ONE (18:15)
[2024-02-02] MEDS: TAMSULOSIN HYDROCHLORIDE 0.4 MG CAP PO SCH (18:16)
[2024-02-02] MEDS: DOCUSATE SOD 100 MG CAP PO ONE (18:16)
[2024-02-02] MEDS: HYDROcodone-ACET 5/325MG TAB PO PRN (18:51)
[2024-02-02] MEDS: ATORVASTATIN 20 MG TAB PO SCH (21:38)
[2024-02-03 01:00] VITALS: BP 129/70; PULSE 70; RESP 16; TEMP 97.8; O2SAT 95
[2024-02-03 05:00] VITALS: BP 133/78; PULSE 70; RESP 16; TEMP 97.9; O2SAT 94
[2024-02-03 07:50] VITALS: PULSE 68; RESP 17; O2SAT 95
[2024-02-03 09:00] VITALS: BP 139/85; PULSE 68; RESP 17; TEMP 97.8; O2SAT 95
[2024-02-03] MEDS: METOCLOPRAMIDE HCL 5MG/ml INJ 2ml VIAL IV ONE (12:25)
[2024-02-03] MEDS: BISACODYL 10 MG RECT SUPP PR ONE (12:26)
[2024-02-03] MEDS: LACTULOSE 20Gm/30ML SOLN PO ONE (12:26)
[2024-02-03 13:00] VITALS: BP 147/81; PULSE 68; RESP 17; TEMP 98.3; O2SAT 96
[2024-02-03] MEDS ORDERED: DOCU-94 PO (15:09)
--- NOTE | 2024-02-03 15:09 | DVHDS2 ---
Discharge Summary Date of Admission Feb 01, 2024 at 22:22 Date of Discharge: Feb 03, 2024 Admitting Diagnosis Abdominal pain secondary to pyelonephritis Labs/Diagnostic Data: Laboratory Results Test 02/03/24 12:05 02/02/24 02:12 02/01/24 18:44 02/01/24 18:29 POC Glucose 170 mg/dl (70-106) White Blood Count 7.3 10^3/uL (4.4-10.8) Red Blood Count 4.44 10^6/uL (4.5-5.90) Hemoglobin 14.0 g/dL (13.5-17.5) Hematocrit 41.2 % (41.0-53.0) Mean Corpuscular Volume 92.7 fL (80.0-100.0) Mean Corpuscular Hemoglobin 31.5 pg (28.0-32.0) Mean Corpuscular Hemoglobin Concent 34.0 g/dL (32.0-36.0) Red Cell Distribution Width 13.1 % (11.8-14.3) Platelet Count 257 10^3/uL (140-450) Mean Platelet Volume 9.7 fL (6.9-10.8) Neutrophils (%) (Auto) 71.7 % (37.0-80.0) Lymphocytes (%) (Auto) 13.8 % (10.0-50.0) Monocytes (%) (Auto) 13.4 % (0.0-12.0) Eosinophils (%) (Auto) 0.5 % (0.0-7.0) Basophils (%) (Auto) 0.6 % (0.0-2.0) Neutrophils # (Auto) 5.3 10 ^3/uL (1.6-8.6) Lymphocytes # (Auto) 1.0 10 ^3/uL (0.4-5.4) Monocytes # (Auto) 1.0 10 ^3/uL (0-1.3) Eosinophils # (Auto) 0 10 ^3/uL (0-0.8) Basophils # (Auto) 0 10 ^3/uL (0-0.2) Nucleated Red Blood Cells 0.0 % Sodium Level 137 mmol/L (136-145) Potassium Level 4.0 mmol/L (3.5-5.1) Chloride Level 104 mmol/L (98-107) Carbon Dioxide Level 30 mmol/L (20-31) Anion Gap 3 (5-15) Blood Urea Nitrogen 8 mg/dL (9-23) Creatinine 0.82 mg/dL (0.700-1.30) Glomerular Filtration Rate Calc 99 mL/min (>90) BUN/Creatinine Ratio 9.8 (10.0-20.0) Serum Glucose 171 mg/dL (74-106) Hemoglobin A1c 8.8 % A1C (<5.7) Calcium Level 9.3 mg/dL (8.7-10.4) Urine Color Yellow (Yellow) Urine Clarity Clear (Clear) Urine pH 6.0 (5.0-9.0) Urine Specific [place] 1.019 (1.001-1.035) Urine Protein Negative (Negative) Urine Ketones Negative (Negative) Urine Blood Negative /uL (Negative) Urine Nitrite Negative (Negative) Urine Bilirubin Negative (Negative) Urine Urobilinogen Normal mg/dL (Negative) Urine Leukocyte Esterase Negative /uL (Negative) Urine RBC 2 /hpf (0 - 3) Urine WBC 1 /hpf (0 - 3) Urine Squamous Epithelial Cells Few /hpf (<5) Urine Bacteria None seen /hpf (None Seen) Urine Mucus Few (None Seen) Urine Glucose Normal mg/dL (Normal) Total Bilirubin 0.5 mg/dL (0.2-1.0) Aspartate Amino Transferase (AST) 15 U/L (13-40) Alanine Aminotransferase (ALT) 16 U/L (7-40) Alkaline Phosphatase 89 U/L (46-116) Troponin I High Sensitivity < 3 ng/L (</=54) Total Protein 7.4 g/dL (5.7-8.2) Albumin 4.4 g/dL (3.2-4.8) Lipase 44 U/L (12-53) Test 02/01/24 18:21 Lactic Acid Level 1.4 mmol/L (0.4-2.0) Other Laboratory Tests 02/02/24 02:12 Brief Hx & Hospital Course: History of Present Illness 63 year male presents for evaluation and flank pain. Patient endorses a one day history right-sided sharp flank pain that is nonradiating associated nausea. Reports occasional chills. Denies dysuria or hematuria. No other acute complaints reported. Course of hospitalization: Assessment performed by myself reveals with the patient has no CVA tenderness. Patient has no leukocytosis in his UA as well as no bacteria to be found. CBC is essentially unremarkable. The patient actually reports having right lower back pain, not flank pain. CT scan was reviewed of his abdomen and pelvis which reveals large stool burden throughout his colon. Patient was given aggressive bowel regimen with patient relieving his bowels and having resolution of his back pain. The patient will be discharged home and be continued on his previous home medications. The patient will also continue with Colace 100 mg p.o. b.i.d. every day, to stop with signs of diarrhea. Physical exam General: Alert and Oriented x3. No acute distress. Well-nourished. Eyes: EOMI. Anicteric. HENT: Moist mucous membranes. Lungs: Clear to auscultation bilaterally. No accessory muscle use. Cardiovascular: Regular rate and rhythm. No murmur. No JVD. Abdomen: Soft, non-tender and non-distended. No palpable masses. Extremities: No edema. Non-tender. Skin: No rashes or lesions. Warm. Neurologic: No focal neurological deficits. CN II-XII grossly intact, but not individually tested. Psychiatric: Cooperative. Appropriate mood and affect. Total time spent with patient discussing and formulating plan of care: 35 minutes. This medical document was created using an electronic medical record system with [employer] dictation system. Although this document has been carefully reviewed, there may still be some phonetic and typographical errors. These areas are purely typographical due to imperfections of the software programs, and do not reflect any compromise in the patient's medical care. Condition at Discharge: Fair Final Diagnosis/Problems List Abdominal pain secondary to severe constipation Secondary Diagnosis: -constipation -mild right hydronephrosis -diabetes mellitus -primary hypertension -history of coronary artery disease with CABG Discharge Disposition: Home Discharge Instruct/Medications Diet: Cardiac 2g Na,low cholest Activity: No Restrictions, As Tolerated Follow Up/Referral: Follow up with PCP in 1-2 weeks Medications: Colace 100 mg p.o. b.i.d.. Stop with the signs of diarrhea. 36 Discharge Statement: "Patient was advised to return to the ER or call 911 if any headaches, dizziness, shortness of breath, chest pain, abdominal pain, bleeding, fevers, or worsening of medical condition. Patient was counseled about treatment plan, medications, possible side effects, patientverbalized understanding. All questions were answered to the best of my ability. This discharge took greater then 30 minutes in planning, reviewing documentation, counseling the patient, and discussing with other team members." ASSESSMENT ASSESSMENT Assessment Abdominal pain secondary to severe constipation Date of Service: Feb 03, 2024 Billing Provider: TATYANA WILLIAM NP Common Visit Codes: 10406-XAJ/OBS DISCH DAY >30min TATYANA WILLIAM NP Feb 03, 2024 15:09
[2024-02-03 16:15] VITALS: BP 136/79; PULSE 80; RESP 20; TEMP 98; O2SAT 96
[2024-02-04 09:49] LABS: Hepatitis B Surface Antigen Negative (Negative)
[2024-02-04 10:10] LABS: Hepatitis C Antibody Negative (Negative)
== END 2024-02-03 17:13 | disposition home or self-care (01) | DRG 247 ==
LOC: ER 18:06 → OVERFLOW 22:22 → CENTRAL 02-02 15:55
PROVIDERS: ADMIT Nurse Practitioner; ATTEND Nurse Practitioner Acute Care
DX: K56.41 Fecal impaction (principal); N13.30 Unspecified hydronephrosis; E11.9 Type 2 diabetes mellitus without complications; I10 Essential (primary) hypertension; E78.5 Hyperlipidemia, unspecified; I25.10 Atherosclerotic heart disease of native coronary artery without angina pectoris; Z95.1 Presence of aortocoronary bypass graft; I25.2 Old myocardial infarction
CPT/HCPCS: 36415; 74176; 80048; 80053; 81001; 82962; 83036; 83605; 83690; 84484; 85025; 86803; 87340; G0378; J1815; J2405

== ENCOUNTER 2024-09-23 17:48 | Emergency (ER) | payer MEDICAID ==
[~2024-09-23] VITALS: Ht 167.6 cm; Wt 76.2 kg
[~2024-09-23 17:48] MED LIST changes: +ASPI-325 PO; +ATOR40TA52 PO; -CHOL20002 PO; +DOCU-94 PO; +GABA-1250 PO; +INSUINJ37 SC; +MET25T PO; +METF-372 PO; +SEMA7TAB2 PO
--- NOTE | 2024-09-23 18:24 | ED.PDOC ---
GI ASSESSMENT HPI Comments 64-year-old male presents to the ED chief complaint flu-like symptoms x4 days. Patient complaining of fever, cough, headache, and sore throat states has been taking [id number] medications with some relief. Notes no recent travel reports no known ill contacts. Denies chest pain, difficulty breathing, nausea, vomiting, abdominal pain, or recent travel Chief Complaint: Flu like Time Seen by MD: 18:22 Primary Care Provider: NONE Reviewed Notes: Nurses Notes, Medications, Allergies Allergies: Coded Allergies: NO KNOWN ALLERGIES (Unverified , 01/11/23) Home Meds Active Scripts Docusate Sodium (Colace) 100 Mg Cap, 1 CAP PO BID for 7 Days, #30 CAP Prov:TATYANA WILLIAM SHOCHET 02/03/24 Reported Medications Aspirin (Aspirin Low Dose) 81 Mg Tab, 1 TAB PO DAILY 02/02/24 Insulin Glargine (Lantus Solostar) 100 Unit/Ml Inj, SC 02/02/24 Atorvastatin Calcium (ATORVASTATIN CALCIUM) 40 Mg Tab, 1 TAB PO DAILY 02/02/24 Metoprolol Tartrate (Lopressor) 25 Mg Tb, 1 TAB PO BID 02/02/24 Gabapentin (Gabapentin) 300 Mg Cap, 1 CAP PO DAILY 02/02/24 Semaglutide (Rybelsus) 7 Mg Tab, 1 TAB PO DAILY 02/02/24 Metformin Hydrochloride (Metformin Hcl) 1,000 Mg Tab, 1 TAB PO BID 02/02/24 Lisinopril (Lisinopril) 10 Mg Tab, 10 MG PO DAILY for 30 Days, MG 01/11/23 Mode of Arrival: Ambulatory Past Medical History PAST MEDICAL HISTORY: DM, High Lipids, HTN Surgical History: Denies all surgeries Family History Family History: Unknown Social History Smoker: Non-Smoker Alcohol: Denies ETOH Use Drugs: Denies Drug Use Lives In: Home Constitutional: reports: fever; denies: chills, diaphoresis, fatigue, malaise, sweats, weakness, others EENTM: reports: throat pain; denies: blurred vision, double vision, ear bleeding, ear discharge, ear drainage, ear pain, ear ringing, eye pain, eye redness, hearing loss, mouth pain, mouth swelling, nasal discharge, nose bleeding, nose congestion, nose pain, photophobia, tearing, throat swelling, voice changes, others Respiratory: reports: cough; denies: hemoptysis, orthopnea, SOB at rest, shortness of breath, SOB with excertion, stridor, wheezing, others Cardiovascular: denies: chest pain, dizzy spells, diaphoresis, Dyspnea on exertion, edema, irregular heart beat, left arm pain, lightheadedness, palpitations, PND, syncope, others Gastrointestinal: denies: abdomen distended, abdominal pain, blood streaked bowels, constipated, diarrhea, dysphagia, difficulty swallowing, hematemesis, melena, nausea, poor appetite, poor fluid intake, rectal bleeding, rectal pain, vomiting, others Genitourinary: denies: burning, dysuria, flank pain, frequency, hematuria, incontinence, penile discharge, penile sore, pain, testicle pain, testicle swelling, urgency, others Neurological: reports: headache; denies: dizziness, fainting, left sided numbness, left sided weakness, numbness, paresthesia, pre-existing deficit, right sided numbness, right sided weakness, seizure, speech problems, tingling, tremors, weakness, others Musculoskeletal: denies: back pain, gout, joint pain, joint swelling, muscle pain, muscle stiffness, neck pain, others Integumetry: denies: bruises, change in color, change in hair/nails, dryness, laceration, lesions, lumps, rash, wounds, others Allergic/Immunocompromised: denies: Difficulty Healing, Frequent Infections, Hives, Itching, others Hematologic/Lymphatic: denies: anemia, blood clots, easy bleeding, easy bruising, swollen glands, others Endocrine: denies: excessive hunger, excessive sweating, excessive thirst, excessive urination, flushing, intolerance to cold, intolerance to heat, un explained weight gain, unexplained weight loss, others Psychiatric: denies: anxiety, bipolar disorder, depression, hopeless, panic disorder, schizophrenia, sleepless, suicidal, others Physical Exam General Appearance: No Apparent Distress, Normal HEENT: Pharyngeal Erythema Neck: Full Range of Motion, Non-Tender Respiratory: Lungs Clear, No Respiratory Distress, Normal Breath Sounds Cardiovascular: No Edema, No JVD, No Murmur, No Gallop, Normal Peripheral Pulses, Regular Rate/Rhythm Breast Exam: Deferred Gastrointestinal: No Organomegaly, Non Tender, No Pulsatile Mass, Normal Bowel Sounds, Soft Genitalia: Deferred Pelvic: Deferred Rectal: Deferred Extremities: Normal capillary refill, Normal inspection, Normal range of motion, Non-tender, No pedal edema Musculoskeletal : Apperance: Normal Neurologic: Alert, No Motor Deficits, Normal Affect, Normal Mood, No Sensory Deficits Cerebellar Function: Normal Reflexes: Normal Skin: Dry, Normal Color, Warm Lymphatic: No Adenopathy Was a procedure done? Was a procedure done?: No GI differential Dx Differential Diagnosis: Other X-Ray, Labs, Meds, VS Vital Signs Date Time Temp Pulse Resp B/P (MAP) Pulse Ox O2 Delivery O2 Flow Rate FiO2 09/23/24 19:59 100.1 97 18 178/80 (112) 95 100.1 09/23/24 17:56 99.9 94 16 143/93 (110) 94 99.9 Lab Test 09/23/24 19:30 Range/Units Influenza Type A Antigen Negative Negative Influenza Type B Antigen Negative Negative SARS-CoV-2 Antigen (Rapid) Negative NEGATIVE X-Ray, Labs, Meds, VS Comment Chest x-ray shows no acute cardiopulmonary findings. Influenza swab and COVID swab negative. Likely URI. Script trial of Augmentin twice daily x7 days advised take medications as prescribed side effects discussed. Script Medrol Dosepak. [id number] Tylenol or Motrin as needed for the pain and fever per labeled dosing instructions. Rest increase p.o. fluids with electrolytes advised to follow up with his PCP in 2-3 days as necessary ER return precautions given patient indicates understanding agrees with discharge plan of care. Time of 1ST Reevaluation: 18:15 Reevaluation 1ST: Unchanged Time of 2ND Reevaluation: 20:24 Reevaluation 2ND: Improved Patient Education/Counseling: Diagnosis, Treatment, Prognosis, Need For Follow Up Family Education/Counseling: No Family Present SEPSIS Sepsis Screen Date sepsis recognized/suspect: Sep 23, 2024 Time Sepsis recognized/suspect: 1755 Recent Procedure: No On Antibiotic Therapy: No Respiratory Rate >20: No Heart Rate >90: Yes Temp<36 C (96.8 F) or >38.3 C: No SBP <90 or MAP <65 mmHG: No New Acute Mental Status Change: No Is the patient on CPAP, BIPAP,: No Physician Orders Chest Two Views Routine (09/23/24 18:24) Vital Signs Date Time Temp Pulse Resp B/P (MAP) Pulse Ox O2 Delivery O2 Flow Rate FiO2 09/23/24 19:59 100.1 97 18 178/80 (112) 95 100.1 09/23/24 17:56 99.9 94 16 143/93 (110) 94 99.9 Departure 1 Departure Time of Disposition: 20:20 Impression: Primary Impression: Acute respiratory infection Disposition: HOME / SELF CARE / HOMELESS Condition: Stable e-Prescriptions Methylprednisolone (Medrol Dosepak) 4 Mg Mark 4 MG PO UD for 6 Days, #21 TAB UAD Prov: DONA BOWIE 09/23/24 Amoxicillin & Pot Clavulanate (AUGMENTIN TABLET) 875 Mg Tb 875 MG PO BID for 7 Days, #14 TAB Prov: DONA BOWIE 09/23/24 Discharged With: Self Critical Care Note Critical Care Time?: No Stability Stability form required: DONA Abraham Sep 23, 2024 18:24
--- NOTE | 2024-09-23 18:53 | DVH ---
XY CHEST TWO VIEWS ROUTINE CLINICAL HISTORY: sob COMPARISON: None TECHNIQUE: Frontal and lateral view of the chest was obtained FINDINGS: Lines and Tubes: Sternal wire sutures in place. Lungs: No focal consolidation. Pleura: No effusion. No pneumothorax. Cardiomediastinal contours: Unremarkable Bones: No acute osseous abnormality. IMPRESSION: 1. No acute cardiopulmonary disease. HS:Y
[2024-09-23 19:59] VITALS: BP 178/80; PULSE 97; RESP 18; TEMP 100.1; O2SAT 95
[2024-09-23 20:05] LABS: COVID19 ANTIGEN SOFIA FIA NEGATIVE (NEGATIVE); Rapid Influenza A Negative (Negative); Rapid Influenza B Negative (Negative)
[2024-09-23] MEDS ORDERED: METH4PAK PO (20:24)
[2024-09-23] MEDS ORDERED: AUG875T PO (20:24)
== END 2024-09-23 20:36 | disposition home or self-care (01) ==
LOC: ER 17:56
DX: J22 Unspecified acute lower respiratory infection (principal); E11.9 Type 2 diabetes mellitus without complications; I10 Essential (primary) hypertension; E78.5 Hyperlipidemia, unspecified; Z79.899 Other long term (current) drug therapy; Z79.82 Long term (current) use of aspirin; Z79.84 Long term (current) use of oral hypoglycemic drugs; Z20.822 Contact with and (suspected) exposure to COVID-19
CPT/HCPCS: 36415; 71046; 87426; 87804